=== PATIENT | female | born 1975 | race Caucasian/White ===

== ENCOUNTER 2019-05-31 14:55 | Inpatient (IN) | payer OTHER ==
[~2019-05-31] VITALS: Ht 152.4 cm; Wt 80.3 kg
--- NOTE | ~2019-05-31 | HC ---
[facility] [place] [address] CONSULTATION Name: CATERINA NIELSEN Room #: 212-P ADM IN M.R.#: [id number] Admission: 05/31/19 Attend Phys: Thomas Vital MD Discharge: Date of : 77 Report #: [id number] THIS REPORT FOR: cc: FAM - No family physician/PCP [facility] - No family physician/PCP Dante Mello MD ~ CC: [facility] physician/PCP Thomas López MD DATE OF SERVICE: 06/01/2019 HISTORY OF PRESENT ILLNESS: The patient is a 44-year-old female who was admitted through the Emergency Room yesterday with chills, cough, increasing shortness of breath, generalized fatigue. This has been becoming progressively worse over the last week. She was noted to be significantly anemic on admission with hemoglobin of 3.1. She has now been transfused 3 units of packed cells. Her hemoglobin at this time is 6.0. She has a long history of anemia. No previous history of endoscopy. She denies any bright red blood per rectum or melena. She denies any abdominal pain. She has been on Nexium for the last several years for reflux, which has controlled her symptoms quite well. She does have regular menses, but describes as it is not heavy. She has a significantly low MCV of 54.4, her white count was low on admission at 3.7, and platelet count on admission was 185. Her weight has been stable. She has been having flu-like symptoms and had an initial nasal swab which was negative for flu. She has been started empirically on Tamiflu. She states she had taken oral iron in the past; however, was not consistent with this due to constipation. She is feeling somewhat better today after her transfusion. She continues to have a cough. She denies any sputum. She is unsure if she has had fever at home and she does not have a thermometer. She is currently on 1 liter of oxygen. She is not on oxygen on a regular basis. PAST MEDICAL HISTORY: Gastroesophageal reflux disease, history of anemia. REVIEW OF SYSTEMS: As per HPI. ALLERGIES: No known drug allergies. SOCIAL HISTORY: She does smoke at times. She denies any alcohol use. FAMILY HISTORY: Negative for colon cancer or inflammatory bowel disease. PHYSICAL EXAMINATION: VITAL SIGNS: Temperature is 98.3 right now, on admission was 101.6; pulse is 80; blood pressure 96/35; respiratory rate 18; and O2 sat is 100% on 1 liter at [address] [address] CONSULTATION Name: CATERINA NIELSEN Room #: 212-P [facility].#: [id number] Admission: 05/31/19 Attend Phys: Thomas Vital MD Discharge: Date of : 77 Report #: [id number] this time. GENERAL: She appears ill, in the fact she is coughing and appears weak in general. HEENT: Sclerae nonicteric. Oropharynx clear. NECK: Supple. CARDIOVASCULAR: Regular rate and rhythm. CHEST: Faint wheezes bilaterally. ABDOMEN: Soft, nontender, nondistended, normoactive bowel sounds. EXTREMITIES: No cyanosis, clubbing or edema. LABORATORY DATA: Sodium 136, potassium 4.2, chloride 104, bicarbonate 23, BUN 10, creatinine 0.7, glucose 158, AST 15, total bilirubin 1.2, calcium 8.1, magnesium 2.1, alkaline phosphatase 75, ALT is 12, total protein 6.5, albumin 3.2. Iron 17, percent sat 3, TIBC is 517. INR 1.1. CBC after transfusions; WBC is 5.7, hemoglobin 6.0, MCV 67.2, platelet count is 192. Blood cultures preliminary no growth. Chest x-ray yesterday, no acute process. She is also receiving IV iron at this time. ASSESSMENT AND PLAN: 1. Severe microcytic anemia, etiology is unclear at this time, apparently she has had a long history of anemia. She denies any obvious bright red blood per rectum or melena. We will proceed with Hemoccult testing of her stools. We would recommend an esophagogastroduodenoscopy and colonoscopy in the near future even if stools are negative. Due to her severe anemia; however, because of her flu-like symptoms, shortness of breath, cough and oxygen requirement recommend waiting until she is more stable. Hematology has also evaluated the patient. Plan is to rule out probable infections, consider bone marrow biopsy. 2. Gastroesophageal reflux disease, history of daily PPI use. Thank you for allowing me to participate in her care. By: 1111 1132 Dante Mello MD /nt
[2019-05-31 15:11] VITALS: BP 124/56
[2019-05-31] MEDS ORDERED: NEXIUM20 MG PO (15:26)
[2019-05-31 15:32] LABS: MCH 14.5 pg (26.0-34.0)
[2019-05-31 15:34] LABS: MCHC 26.7 g/dL (28.0-37.0); MCV 54.4 fL (80.0-100.0); PLATELET COUNT 185 thou/uL (150-400); RBC 2.16 mil/uL (4.20-5.00); RDW 21.3 % (10.5-14.5); WBC 3.7 thou/uL (4.0-11.0)
[2019-05-31 15:38] LABS: HEMATOCRIT 11.8 % (37.0-47.0)
[2019-05-31 15:39] LABS: HEMOGLOBIN 3.1 gm/dL (12.0-15.0)
[2019-05-31 15:48] LABS: ANION GAP 10 mmol/L (7-16); BUN 7 mg/dL (7-18); CALCIUM 8.7 mg/dL (8.5-10.1); CHLORIDE 99 mmol/L (98-107); CO2 24 mmol/L (21-32); CREATININE 0.8 mg/dL (0.6-1.0); GLUCOSE 116 mg/dL (74-106); POTASSIUM 3.7 mmol/L (3.5-5.1); SODIUM 133 mmol/L (136-145)
[2019-05-31 15:49] LABS: APTT 28.5 Seconds (24.5-32.8); INR 1.1; PROTIME 11.7 Seconds (9.3-11.4)
[2019-05-31 15:54] LABS: MCH 14.3 pg (26.0-34.0); MCHC 26.2 g/dL (28.0-37.0); MCV 54.4 fL (80.0-100.0); RBC 2.11 mil/uL (4.20-5.00); RDW 21.5 % (10.5-14.5); WBC 3.7 thou/uL (4.0-11.0)
[2019-05-31 15:55] LABS: HEMATOCRIT 11.5 % (37.0-47.0)
[2019-05-31 15:58] LABS: ALBUMIN 3.5 g/dL (3.4-5.0); SGOT 13 U/L (15-37); SGPT 8 U/L (30-65); TOTAL PROTEIN 7.2 g/dL (6.4-8.2); TROPONIN-I <0.06 ng/mL (<0.06)
[2019-05-31 16:11] LABS: ABSOLUTE NEUTROPHILS 2.6 thou/uL (1.4-8.2)
[2019-05-31 16:12] LABS: HYPOCHROMASIA 3+
[2019-05-31 16:13] LABS: MICROCYTES 3+
[2019-05-31 16:14] LABS: ANISOCYTOSIS 1+; POIKILOCYTOSIS 1+; POLYCHROMASIA OCCASIONAL
[2019-05-31 16:43] LABS: ABSOLUTE RETIC COUNT 0.0265 10^6/uL; OBSERVED RETIC COUNT 1.34 % (0.6-2.6)
[2019-05-31 16:50] LABS: % SATURATION 3 % (20-39); IRON 17 ug/dL (50-170); TIBC 517 ug/dL (250-450)
[2019-05-31 17:20] LABS: URINE BILIRUBIN NEGATIVE (Negative); URINE BLOOD NEGATIVE (Negative); URINE CLARITY CLEAR; URINE COLOR YELLOW; URINE GLUCOSE-RANDOM* NEGATIVE (Negative); URINE KETONES NEGATIVE (Negative); URINE LEUKOCYTES-REFLEX NEGATIVE (Negative); URINE NITRITE-REFLEX NEGATIVE (Negative); URINE PROTEIN (DIPSTICK) NEGATIVE (Negative); URINE UROBILINOGEN 0.2 E.U./dl (0.2-1.0)
[2019-05-31 17:21] LABS: DIRECT BILIRUBIN 0.5 mg/dL (<0.1-0.2); TOTAL BILIRUBIN 1.5 mg/dL (<0.1-1.0)
[2019-05-31 17:26] VITALS: BP 115/44
[2019-05-31 18:41] VITALS: BP 116/50; BP 119/52; BP 122/53; BP 126/55
[2019-05-31 20:55] VITALS: BP 125/73
[2019-05-31 21:25] VITALS: BP 122/48
[2019-05-31 21:32] VITALS: BP 122/48
[2019-05-31 23:07] LABS: MCH 16.7 pg (26.0-34.0); MCHC 27.9 g/dL (28.0-37.0); RBC 2.32 mil/uL (4.20-5.00); RDW 27.9 % (10.5-14.5); WBC 2.7 thou/uL (4.0-11.0)
[2019-05-31 23:11] LABS: HEMATOCRIT 13.9 % (37.0-47.0); HEMOGLOBIN 3.9 gm/dL (12.0-15.0); MCV 59.9 fL (80.0-100.0)
[2019-06-01] VITALS (9 sets, daily range): BP systolic 96–137; BP diastolic 35–73
--- NOTE | 2019-06-01 01:40 | NUR ---
1ST BLOOD TRANSFUSION COMPLETED AT 2039. VITAL SIGNS STABLE. BLOOD STARTED AT ER AND COMPLETED ON THE FLOOR.TOLERATED BLOOD TRANSFUSION. CONTINUE TO MONITOR PT. DENIES ANY FURTHER NEEDS AT THIS TIME.
[2019-06-01 02:06] LABS: HEMOGLOBIN 2.7 g/dL (11.1-15.9)
[2019-06-01 03:07] LABS: HEMATOLOGY COMMENTS Note: (())
[2019-06-01 04:24] LABS: MCH 18.8 pg (26.0-34.0); MCHC 29.7 g/dL (28.0-37.0); MCV 63.2 fL (80.0-100.0); PLATELET COUNT 179 thou/uL (150-400); RDW 32.6 % (10.5-14.5); WBC 2.4 thou/uL (4.0-11.0)
[2019-06-01 04:26] LABS: HEMOGLOBIN 4.5 gm/dL (12.0-15.0)
[2019-06-01 04:27] LABS: HEMATOCRIT 15.2 % (37.0-47.0)
[2019-06-01 04:45] LABS: ALBUMIN 3.2 g/dL (3.4-5.0); CALCIUM 8.1 mg/dL (8.5-10.1); CREATININE 0.7 mg/dL (0.6-1.0); MAGNESIUM 2.1 mg/dL (1.8-2.4); POTASSIUM 4.2 mmol/L (3.5-5.1); TOTAL BILIRUBIN 1.2 mg/dL (<0.1-1.0); TOTAL PROTEIN 6.5 g/dL (6.4-8.2)
[2019-06-01 05:07] LABS: ABSOLUTE NEUTROPHILS 2.2 thou/uL (1.4-8.2); ANISOCYTOSIS 3+; HYPOCHROMASIA 3+; MICROCYTES 3+; POLYCHROMASIA 1+
[2019-06-01 05:08] LABS: LARGE PLATELETS FEW
[2019-06-01 05:10] LABS: SCHISTOCYTES 1+; TEARDROPS 1+
[2019-06-01 05:11] LABS: POIKILOCYTOSIS 1+
[2019-06-01 05:14] LABS: OVALOCYTES 2+
--- NOTE | 2019-06-01 07:10 | NUR ---
PT WAS AN ER ADMIT. PT WAS TRANSFERRED TO [facility] FROM AN URGENT CARE . AT THE ER, IT WAS NOTED THAT HER HEMOGLOBIN WAS 3.0. AND BLOOD TRANSFUSION WASSTARETED STAT. PT WAS TRANSFERRED TP THE FLOOR AND CONTINUOS AND MORE BLOOD TRANSFUSION WAS ORDERED. PT TOLERATED BLOOD TRANSFUSION. LASIX ADMINISTERED. ADMISSION ASSESSMENT AND EDUCATION COMPLETED. SCHEDULED MEDS ADMINISTERED TO PT. HEART RATE STABLE. CONTINUE TO MONITOR PT. DENIES ANY PAIN. NO FURTHER NEEDS REQUESTED AT THIS TIME.
[2019-06-01 09:02] LABS: WBC 5.7 thou/uL (4.0-11.0)
[2019-06-01 09:03] LABS: HEMATOCRIT 20.1 % (37.0-47.0); MCH 20.2 pg (26.0-34.0); MCV 67.2 fL (80.0-100.0); RBC 2.99 mil/uL (4.20-5.00); RDW 35.3 % (10.5-14.5)
[2019-06-01 09:43] LABS: FOLIC ACID 16.7 ng/mL (8.6-58.9); TSH 0.988 uIU/mL (0.358-3.740)
--- NOTE | 2019-06-01 10:04 | EKG ---
[facility] [place] [address] ELECTROCARDIOGRAM REPORT Name: CATERINA NIELSEN Room #: 212- ADM IN M.R.#: [id number] Admission: 05/31/19 Attend Phys: Thomas Vital MD Discharge: Date of : 77 Report #: [id number] THIS REPORT FOR: cc: MICHELA - Cheryl family physician/PCP MICHELA - Cheryl family physician/PCP Arslan Durand MD ~ THIS REPORT FOR: //name// [facility] ED Test Date: 2019-05-31 Test Time: 15:00:51 Pat Name: CATERINA NIELSEN Department: Room: [facility] Gender: F Library Manager: SANJAY : 1975 Requested By: Michael Vincent Order Number: [id number] MD: Arslan Durand Measurements Intervals [place] Rate: 126 P: 77 AR: 125 QRS: 67 QRSD: 80 T: -36 QT: 280 QTc: 406 Interpretive Statements Sinus tachycardia ST segment depressions in the inferolateral leads, rule out ischemia No previous ECG available for comparison Electronically Signed On 06-01-2019 10:03:26 BRIQUETTING MACHINE OPERATOR by Arslan Durand [email or web address] <ELECTRONICALLY SIGNED> By: Arslan Durand MD 06/01/19 1003 1500 1500 Arslan Durand MD /WAI
--- NOTE | 2019-06-01 10:04 | NUR ---
SPOKE WITH DR. JO AND IN STRUCTED TO CHECK H/H THIS EVENING AND IF HGB LEDD THAN 6.0 TRANSFUSE 1 UNIT PRBC.
[2019-06-01 10:08] LABS: BE(vivo) -4.3 mmol/L (-2 to +3); HCO3 20.4 mmol/L (22.0-26.0); PCO2 35.3 mmHg (35.0-45.0); PO2 96.9 mmHg (80.0-100.0); sO2 97.3 % (92.0-98.0)
[2019-06-01 20:42] LABS: HEMATOCRIT 21.1 % (37.0-47.0)
[2019-06-01 20:43] LABS: HEMOGLOBIN 6.2 gm/dL (12.0-15.0)
--- NOTE | 2019-06-02 03:55 | NUR ---
ASSUMED PT CARE AT 1900, PT IS ALERT AND ORIENTEDX4, COMPLAINED OF SOB EARLIER IN THE SHIFT, O2 TREATMENT GIVEN PRN ORDERED, NO FURTHER COMPLAINS, DENIES CHEST PAIN, COMPLAINS OF GENERALIZED WEAKNESS, ASSESSMENTS CHARTED, RESTING WELL IN BED, WILL CONTINUE TO MONITOR
[2019-06-02 04:45] VITALS: BP 101/49
[2019-06-02 05:33] LABS: ABSOLUTE NEUTROPHILS 7.7 thou/uL (1.4-8.2); RBC 2.84 mil/uL (4.20-5.00)
[2019-06-02 05:35] LABS: BASOPHILS 0.2 % (0.0-2.0); LYMPHOCYTES 11.8 % (24.0-44.0); MCH 20.2 pg (26.0-34.0); MCHC 29.7 g/dL (28.0-37.0); MONOCYTES 6.7 % (1.0-8.0); PLATELET COUNT 163 thou/uL (150-400); POLYS 81.3 % (36.0-66.0); WBC 9.4 thou/uL (4.0-11.0)
[2019-06-02 05:43] LABS: HEMATOCRIT 19.3 % (37.0-47.0); HEMOGLOBIN 5.7 gm/dL (12.0-15.0)
[2019-06-02 05:55] LABS: ANION GAP 8 mmol/L (7-16); BUN 14 mg/dL (7-18); CALCIUM 7.9 mg/dL (8.5-10.1); CHLORIDE 105 mmol/L (98-107); CO2 26 mmol/L (21-32); CREATININE 0.6 mg/dL (0.6-1.0); GLUCOSE 101 mg/dL (74-106); POTASSIUM 4.2 mmol/L (3.5-5.1); SGOT 13 U/L (15-37); SGPT 13 U/L (30-65); SODIUM 139 mmol/L (136-145); TOTAL BILIRUBIN 0.7 mg/dL (<0.1-1.0); TOTAL PROTEIN 5.9 g/dL (6.4-8.2); TROPONIN-I <0.06 ng/mL (<0.06)
[2019-06-02 06:53] VITALS: BP 103/60; BP 108/66; BP 110/55; BP 120/62
[2019-06-02 08:20] VITALS: BP 110/55
[2019-06-02 13:39] LABS: HEMOGLOBIN 6.6 gm/dL (12.0-15.0)
--- NOTE | 2019-06-02 14:18 | NUR ---
REPORT RECEIVED FROM ANGE AT 0705, PT ASSESSED, VSS, #4 UNIT PRBC RUNNING, PT DENIES ANY PAIN RIGHT NOW. LATER, PAIN MEDS GIVEN FOR BACK PAIN THAT RADIATED DOWN TO LEGS, PT FELL ASLEEP AFTER FENTANYL, OCC STOOL SENT, SPUTUM SENT TO LAB, ON CLEAR LIQUID DIET, EXPLAINED DIET TO PT, SHE VERBALIZED UNDERSTANDING AND HAS THE PAPER SHOWING WHAT SHE IS ALLOWED TO EAT/DRINK. WILL MONITOR.
[2019-06-02 16:40] VITALS: BP 117/71
[2019-06-02 20:05] VITALS: BP 116/67
--- NOTE | 2019-06-03 04:55 | NUR ---
ASSUMED PT CARE AT 2358. REPORT TAKEN FROM ANGE MURRAY. PT IS SLEEPING UPON ARRIVAL TO ROOM BUT SHE WAS AROUSABLE. SHE WAS REINFORCED ON BEEN NPO AFTER MIDNIGHT FOR A SCHEDULED EGD AND COLONOSCOPY. PT VERBALIZED UNDERSTANDING. NO SIGN OF DISTRESS NOTED IN PT. CONTINUE TO MONITOR PT.
[2019-06-03 04:59] VITALS: BP 115/66
[2019-06-03 05:44] LABS: WBC 6.1 thou/uL (4.0-11.0)
[2019-06-03 05:45] LABS: HEMOGLOBIN 6.7 gm/dL (12.0-15.0); MCHC 29.3 g/dL (28.0-37.0); MCV 71.6 fL (80.0-100.0); RBC 3.21 mil/uL (4.20-5.00); RDW 35.5 % (10.5-14.5)
[2019-06-03 07:51] VITALS: BP 121/63
[2019-06-03 08:25] VITALS: BP 106/48; BP 121/63; BP 134/76
[2019-06-03 11:49] VITALS: BP 150/93
[2019-06-03] MEDS ORDERED: OSELTAMIVIR PHO75 MG PO (12:00)
[2019-06-03] MEDS ORDERED: FOLIC ACID1 MG PO (12:00)
[2019-06-03] MEDS ORDERED: NIFEREX TABLET1 EACH PO (12:00)
[2019-06-03 12:17] LABS: HEMATOCRIT 27.7 % (37.0-47.0); HEMOGLOBIN 8.2 gm/dL (12.0-15.0)
[2019-06-03 13:00] VITALS: BP 150/93
[2019-06-03 14:07] LABS: HGB SOLUBILITY Negative (Negative)
--- NOTE | 2019-06-03 14:42 | NUR ---
Met with patient she resides with fiance and dog. She has adult children. patient with no health insurance and does not work. [place] to [place] home. Vouched scripts in amount of $66.23. Cab vouched for home. Patient has safety net packet and [facility] info. encouraged to make apt for f/u.
[2019-06-03 15:09] LABS: PARVOVIRUS IGG 4.2 index (0.0-0.8)
--- NOTE | 2019-06-03 15:31 | NUR ---
PT CARE ASSUMED APPROX 0700. ASSESSMENT CHARTED. DENIED PAIN AND SOA. VSS. UP WITH STEADY GAIT. COMPLETED GI PROCEDURES WITHOUT ISSUE. BLOOD TRANSFUSED WITHOUT ISSUE. DR NAMRATA SALASFIED ABOUT REASSESSED HGB. PT APPROVED FOR DISCHARGE. EDUCATTION DONE WITH PT. SHE DENIED QUESTIONS OR CONCERNS REGARDING [facility]. IV OUT, TELE OFF.
[2019-06-04 16:07] LABS: ADENOVIRUS Negative (Negative); INFLUENZA A Negative (Negative); INFLUENZA B Negative (Negative); METAPNEUMOVIRUS Negative (Negative); PARAINFLUENZA 1 Negative (Negative); PARAINFLUENZA 2 Negative (Negative); PARAINFLUENZA 3 Negative (Negative); RHINOVIRUS Negative (Negative); RSV A Negative (Negative); RSV B Negative (Negative)
--- NOTE | 2019-06-04 16:07 | PATH ---
[facility] [address] [address] PATHOLOGY RPT PROCEDURE Name: JANNETH LARA Room #: 212-P DIS IN M.R.#: [id number] Admission: 05/31/19 Date of : 77 Discharge: 06/03/19 Report #: [id number] Path Case #: [id number] [facility] Accession Number: [id number] . 01 Material submitted: . PART A: small bowel - BX OF SMALL BOWEL PART B: colon - POLYP AT TRANSVERSE. Modifiers: transverse . 01 Clinical history: . Pre-op diagnosis: Iron deficiency anemia Post-op diagnosis: Hemorrhoids, polyp . 02 Diagnosis: A. Small bowel mucosa, small bowel R/O celiac disease, endoscopic biopsy: - No diagnostic abnormalities. - Negative for villous blunting or increase in intraepithelial cysts. . B. Polyp, at transverse colon, endoscopic biopsy: - Tubular adenoma. - Negative for high-grade dysplasia. (IUV:heri; 06/04/2019) QMS 06/04/2019 1453 Local . 02 Electronically signed: . Candice Dasilva MD, Pathologist NPI- [id number] . 01 Gross description: . A. The specimen is received in formalin, labeled "Janneth Hall, biopsy of small bowel, R/O celiac disease". Received are four segments of pale louie soft tissue ranging in size from 0.4 to 0.5 cm in maximum dimensions. The specimen is submitted entirely in cassette A1. . B. The specimen is received in formalin, labeled "Janneth Lara, polyp at transverse". Received is a segment of light louie soft tissue measuring 1.3 x 0.6 x 0.5 cm in greatest dimensions. The surgical margin is inked. The specimen is bisected and entirely submitted in cassette B1. (CAA; 06/03/2019) QAC/QAC 06/03/2019 1708 Local . 02 Pathologist provided ICD-10: D12.3, D50.9 . 02 CPT . 732555, 782420 Specimen Comment: A courtesy copy of this report has been sent to [phone], [id number], [place] [address] PATHOLOGY RPT PROCEDURE Name: JANNETH LARA Room #: 212-P DIS IN M.R.#: [id number] Admission: 05/31/19 Date of : 77 Discharge: 06/03/19 Report #: [id number] Path Case #: [id number] Specimen Comment: [id number] Specimen Comment: Report sent to / DR JARAMILLO Performed at: [address], [place], [place] [id number] MD Clarence Mcnair MD Phone: [phone] Performed at: [address], [place], [place] [id number] MD Candice Dasilva MD Phone: [phone]
[2019-06-04 17:08] LABS: PARVOVIRUS IGM 0.1 index (0.0-0.8)
== END 2019-06-03 15:27 | disposition home or self-care (01) | DRG 811 ==
LOC: ER 14:55 → EROBS 17:24 → 2N 17:24 → ENTRNSPT 06-03 15:16 → 2N 06-03 15:27
PROVIDERS: Emergency Medicine; Hospitalist; Internal Medicine Hematology & Oncology; Nurse Practitioner; ADMIT Internal Medicine
DX: D50.9 Iron deficiency anemia, unspecified (principal); J96.01 Acute respiratory failure with hypoxia; D12.3 Benign neoplasm of transverse colon; B34.9 Viral infection, unspecified; F17.210 Nicotine dependence, cigarettes, uncomplicated; D70.9 Neutropenia, unspecified; K21.9 Gastro-esophageal reflux disease without esophagitis; R50.9 Fever, unspecified; E66.9 Obesity, unspecified; K64.8 Other hemorrhoids; Z68.34 Body mass index [BMI] 34.0-34.9, adult; Z79.899 Other long term (current) drug therapy
CPT/HCPCS: 10081; 62110; 62900

== ENCOUNTER 2020-07-14 19:00 | Emergency (ER) | payer OTHER ==
[~2020-07-14] VITALS: Ht 167.6 cm; Wt 73.9 kg
[~2020-07-14 19:00] MED LIST: FOLIC ACID1 MG PO; NEXIUM20 MG PO; NIFEREX TABLET1 EACH PO; OSELTAMIVIR PHO75 MG PO
[2020-07-14 20:00] LABS: ABSOLUTE NEUTROPHILS 7.6 thou/uL (1.4-8.2); BASOPHILS 0.3 % (0.0-2.0); EOSINOPHILS 2.9 % (0.0-3.0); HEMATOCRIT 42.8 % (37.0-47.0); HEMOGLOBIN 14.1 gm/dL (12.0-15.0); LYMPHOCYTES 7.9 % (24.0-44.0); MCH 28.4 pg (26.0-34.0); MCHC 32.9 g/dL (28.0-37.0); MCV 86.1 fL (80.0-100.0); MONOCYTES 5.1 % (1.0-8.0); PLATELET COUNT 160 thou/uL (150-400); POLYS 83.8 % (36.0-66.0); RBC 4.97 mil/uL (4.20-5.00); RDW 15.5 % (10.5-14.5); WBC 9.1 thou/uL (4.0-11.0)
[2020-07-14 20:05] LABS: CREATININE 0.7 mg/dL (0.6-1.0); POTASSIUM 3.8 mmol/L (3.5-5.1)
[2020-07-14 20:22] LABS: ALBUMIN 3.6 g/dL (3.4-5.0); DIRECT BILIRUBIN 0.2 mg/dL (<0.1-0.2); TOTAL BILIRUBIN 0.9 mg/dL (0.2-1.0)
[2020-07-14 21:49] LABS: URINE BLOOD TRACE (Negative); URINE CLARITY CLEAR; URINE COLOR YELLOW; URINE GLUCOSE-RANDOM* TRACE (Negative); URINE KETONES NEGATIVE (Negative); URINE LEUKOCYTES-REFLEX 2+ (Negative); URINE NITRITE-REFLEX NEGATIVE (Negative); URINE PROTEIN (DIPSTICK) 1+ (Negative); URINE SPECIFIC GRAVITY 1.025 (1.005-1.035); URINE UROBILINOGEN >= 8.0 E.U./dl (0.2-1.0)
[2020-07-14 21:51] LABS: ICTOTEST (BILI CONFIRMATORY) Negative (Negative); URINE BILIRUBIN NEGATIVE (Negative)
[2020-07-14 21:56] LABS: CASTS None Seen /LPF (None Seen); CRYSTALS None Seen /LPF (None Seen); SQUAMOUS 4-10 Moderate /LPF (0-3); URINE RBC 3-10 Few /HPF (0-2); URINE WBC-REFLEX >25 Many /HPF (0-5)
[2020-07-14] MEDS ORDERED: MACROBID 100 M100 M1 PO (22:13)
[2020-07-14 22:14] VITALS: BP 110/58
== END 2020-07-14 22:24 | disposition home or self-care (01) ==
LOC: ER 19:00
PROVIDERS: Nurse Practitioner
DX: R05 Cough (principal); J02.9 Acute pharyngitis, unspecified; R50.9 Fever, unspecified; M79.10 Myalgia, unspecified site; J45.909 Unspecified asthma, uncomplicated; Z86.2 Personal history of diseases of the blood and blood-forming organs and certain disorders involving the immune mechanism; Z20.822 Contact with and (suspected) exposure to COVID-19

== ENCOUNTER 2020-10-19 09:36 | Emergency (ER) | payer OTHER ==
[~2020-10-19] VITALS: Ht 167.6 cm; Wt 73.5 kg
[~2020-10-19 09:36] MED LIST changes: +MACROBID 100 M100 M1 PO
[2020-10-19] MEDS ORDERED: NORCO7.5 PO (10:14)
[2020-10-19] MEDS ORDERED: IBUPROFEN 600600 M1 PO (10:14)
== END 2020-10-19 10:15 | disposition home or self-care (01) ==
LOC: ER 09:36
DX: M25.562 Pain in left knee (principal); M25.561 Pain in right knee; J45.909 Unspecified asthma, uncomplicated; D64.9 Anemia, unspecified

== ENCOUNTER 2021-03-01 19:51 | Emergency (ER) | payer OTHER ==
[~2021-03-01] VITALS: Ht 167.6 cm; Wt 73.9 kg
[~2021-03-01 19:51] MED LIST changes: +IBUPROFEN 600600 M1 PO; +NORCO7.5 PO
[2021-03-01] MEDS ORDERED: NEXIUM5 MG PO (19:58)
[2021-03-01] MEDS ORDERED: AZITHROMYCIN 2250 MG PO (20:08)
[2021-03-01] MEDS ORDERED: PROAIR HFA8.5 GM INH (20:08)
[2021-03-01 20:27] VITALS: BP 130/67
== END 2021-03-01 20:28 | disposition home or self-care (01) ==
LOC: ER 19:51
PROVIDERS: Emergency Medicine
DX: J45.909 Unspecified asthma, uncomplicated (principal); Z20.822 Contact with and (suspected) exposure to COVID-19; F17.210 Nicotine dependence, cigarettes, uncomplicated; Z90.49 Acquired absence of other specified parts of digestive tract; Z79.899 Other long term (current) drug therapy